=== PATIENT | female | born 1945 | race Caucasian/White ===

== ENCOUNTER 2017-04-06 11:01 | Outpatient (CLI) | payer OTHER ==
[~2017-04-06 11:01] MED LIST: ALBU8.5H8 INH; ALEN10TA6 PO; HYDR12.585 PO; LEVO88TA5 PO; LORA1TAB PO; LOSA100T11 PO; MONT10TA22 PO
== END 2017-04-06 19:31 | disposition home or self-care (01) ==
LOC: SMA 11:01
PROVIDERS: ATTEND Specialist
DX: Z12.31 Encounter for screening mammogram for malignant neoplasm of breast (principal)
CPT/HCPCS: G0202

== ENCOUNTER 2019-05-29 12:42 | Outpatient (CLI) | payer OTHER ==
[~2019-05-29 12:42] MED LIST changes: -ALEN10TA6 PO; +ALEN10TA7 PO; -LOSA100T11 PO; +LOSA100T3 PO
== END 2019-05-29 20:57 | disposition home or self-care (01) ==
LOC: SMA 12:42
PROVIDERS: ATTEND Specialist
DX: Z12.31 Encounter for screening mammogram for malignant neoplasm of breast (principal)
CPT/HCPCS: 77067

== ENCOUNTER 2021-03-23 17:01 | Outpatient (CLI) | payer OTHER ==
[~2021-03-23 17:01] MED LIST changes: +ALEN10TA25 PO; -ALEN10TA7 PO
== END 2021-03-23 20:22 | disposition home or self-care (01) ==
LOC: SRD 17:01
PROVIDERS: ATTEND Internal Medicine
DX: M25.559 Pain in unspecified hip (principal)
CPT/HCPCS: 73521

== ENCOUNTER 2021-05-17 13:35 | Outpatient (CLI) | payer OTHER | END 2021-05-17 20:04 | disposition home or self-care (01) | LOC: SMA 13:35 | PROVIDERS: ATTEND Internal Medicine | DX: Z12.31 Encounter for screening mammogram for malignant neoplasm of breast (principal) | CPT/HCPCS: 77067 ==

== ENCOUNTER 2021-06-07 14:07 | Outpatient (CLI) | payer OTHER | END 2021-06-07 19:52 | disposition home or self-care (01) | LOC: SRD 14:07 | PROVIDERS: ATTEND Internal Medicine | DX: M47.26 Other spondylosis with radiculopathy, lumbar region (principal); M16.0 Bilateral primary osteoarthritis of hip; M47.817 Spondylosis without myelopathy or radiculopathy, lumbosacral region; M89.38 Hypertrophy of bone, other site; I70.0 Atherosclerosis of aorta; I70.8 Atherosclerosis of other arteries | CPT/HCPCS: 72110; 72170-TC ==

== ENCOUNTER 2021-10-07 08:56 | Outpatient (CLI) | payer OTHER | END 2021-10-07 20:06 | disposition home or self-care (01) | LOC: SUS 08:56 | PROVIDERS: ATTEND Specialist | DX: N90.89 Other specified noninflammatory disorders of vulva and perineum (principal) | CPT/HCPCS: 76856-TC ==

== ENCOUNTER 2023-03-01 13:14 | Outpatient (CLI) | payer OTHER ==
[~2023-03-01 13:14] MED LIST changes: -LOSA100T3 PO; +LOSA100T4 PO; +MONT-47 PO; -MONT10TA22 PO
== END 2023-03-01 14:38 | disposition home or self-care (01) ==
LOC: SMA 13:14
PROVIDERS: ATTEND Specialist
DX: Z12.31 Encounter for screening mammogram for malignant neoplasm of breast (principal)
CPT/HCPCS: 77067